=== PATIENT | female | born 1975 | race Caucasian/White ===

== ENCOUNTER 2016-06-22 06:48 | Day surgery (SDC) | payer OTHER ==
[~2016-06-22] VITALS: Ht 175.3 cm; Wt 107.1 kg
[~2016-06-22 06:48] MED LIST: BACTRIM,SEPT1 TABLET PO; CELEBREX50 MG PO; DOXYCYCLINE HY100 MG PO; GUMMI BEAR MUL1 EACH PO; HYDROCODON-ACE1 EAC8 PO; IRON325 MG PO; KEFLEX500 MG PO; LEXAPRO20 MG PO; LORCET 5-325 M1 EACH PO; LYRICA100 MG PO; LYRICA50 MG PO; LYRICA75 MG PO; MELOXICAM7.5 MG PO; MOTRIN800 MG PO; NOHOMEMEDS; RELAFEN500 M1 PO; ULTRAM50 MG PO; VICODIN 5-3001 EACH PO; WELLBUTRIN SR150 MG PO; ZANAFLEX2 M1 PO
== END 2016-06-22 09:00 | disposition home or self-care (01) ==
LOC: PAIN 06:48 → SDC 07:30 → PAIN 07:30 → CATH 08:00 → PAIN 09:00
PROC: 3E0S33Z Introduction of Anti-inflammatory into Epidural Space, Percutaneous Approach (ICD-10-PCS; principal; 2016-06-22)
DX: M54.16 Radiculopathy, lumbar region (principal); F41.9 Anxiety disorder, unspecified; M47.812 Spondylosis without myelopathy or radiculopathy, cervical region; G89.29 Other chronic pain; M48.06 Spinal stenosis, lumbar region; Z79.899 Other long term (current) drug therapy; M51.06 Intervertebral disc disorders with myelopathy, lumbar region; M79.1 Myalgia; M43.16 Spondylolisthesis, lumbar region; M54.41 Lumbago with sciatica, right side; E66.09 Other obesity due to excess calories; Z68.34 Body mass index [BMI] 34.0-34.9, adult; Z87.891 Personal history of nicotine dependence
CPT/HCPCS: J1030; J2250; J3010

== ENCOUNTER 2016-07-26 06:59 | Day surgery (SDC) | payer OTHER ==
[~2016-07-26] VITALS: Ht 175.3 cm; Wt 110.2 kg
[~2016-07-26 06:59] MED LIST changes: +CELEBREX100 MG PO
== END 2016-07-26 08:54 | disposition home or self-care (01) ==
LOC: PAIN 06:59 → SDC 07:30 → PAIN 08:54
PROC: 3E0R33Z Introduction of Anti-inflammatory into Spinal Canal, Percutaneous Approach (ICD-10-PCS; principal; 2016-07-26)
PROC: 3E0R3BZ Introduction of Anesthetic Agent into Spinal Canal, Percutaneous Approach (ICD-10-PCS; 2016-07-26)
DX: M54.16 Radiculopathy, lumbar region (principal); M19.90 Unspecified osteoarthritis, unspecified site; Z79.891 Long term (current) use of opiate analgesic; Z87.891 Personal history of nicotine dependence
CPT/HCPCS: J1100; J2250; J3010

== ENCOUNTER 2016-09-06 12:35 | Day surgery (SDC) | payer OTHER ==
[~2016-09-06] VITALS: Ht 175.3 cm; Wt 110.2 kg
== END 2016-09-06 15:05 | disposition home or self-care (01) ==
LOC: PAIN 12:35 → SDC 13:00 → PAIN 15:05
DX: M47.812 Spondylosis without myelopathy or radiculopathy, cervical region (principal); F41.9 Anxiety disorder, unspecified; M47.26 Other spondylosis with radiculopathy, lumbar region; M51.06 Intervertebral disc disorders with myelopathy, lumbar region; M53.3 Sacrococcygeal disorders, not elsewhere classified; Z87.891 Personal history of nicotine dependence; F32.9 Major depressive disorder, single episode, unspecified; E66.09 Other obesity due to excess calories; Z68.37 Body mass index [BMI] 37.0-37.9, adult
CPT/HCPCS: J1030; J1885; J2250; J3010; S0020

== ENCOUNTER 2016-09-13 08:52 | Day surgery (SDC) | payer OTHER ==
[~2016-09-13] VITALS: Ht 175.3 cm; Wt 110.2 kg
== END 2016-09-13 11:50 | disposition home or self-care (01) ==
LOC: PAIN 08:52 → SDC 09:45 → PAIN 11:50
DX: M47.812 Spondylosis without myelopathy or radiculopathy, cervical region (principal); M54.2 Cervicalgia; G89.29 Other chronic pain; M54.41 Lumbago with sciatica, right side; M51.16 Intervertebral disc disorders with radiculopathy, lumbar region; M51.06 Intervertebral disc disorders with myelopathy, lumbar region; Z68.37 Body mass index [BMI] 37.0-37.9, adult; E66.09 Other obesity due to excess calories; Z87.891 Personal history of nicotine dependence; Z79.891 Long term (current) use of opiate analgesic
CPT/HCPCS: J1030; J1885; J2250; J3010; S0020

== ENCOUNTER 2016-12-24 12:00 | Day surgery (SDC) | payer OTHER ==
[~2016-12-24] VITALS: Ht 175.3 cm; Wt 108.8 kg
== END 2016-12-24 14:31 | disposition home or self-care (01) ==
LOC: PAIN 12:00 → SDC 12:45 → PAIN 12:45
DX: M47.812 Spondylosis without myelopathy or radiculopathy, cervical region (principal); M54.2 Cervicalgia; G89.29 Other chronic pain; M54.5 Low back pain; M47.26 Other spondylosis with radiculopathy, lumbar region; M79.1 Myalgia; M43.16 Spondylolisthesis, lumbar region; F41.8 Other specified anxiety disorders; E66.9 Obesity, unspecified; Z68.35 Body mass index [BMI] 35.0-35.9, adult; Z79.891 Long term (current) use of opiate analgesic; Z87.891 Personal history of nicotine dependence
CPT/HCPCS: J1030; J1885; J2250; J3010; S0020

== ENCOUNTER 2016-12-31 10:52 | Day surgery (SDC) | payer OTHER ==
[~2016-12-31] VITALS: Ht 175.3 cm; Wt 108.9 kg
[~2016-12-31 10:52] MED LIST changes: +PERCOCET 10/1 TABLET PO
== END 2016-12-31 12:37 | disposition home or self-care (01) ==
LOC: PAIN 10:52 → SDC 13:00 → PAIN 13:00
DX: M47.812 Spondylosis without myelopathy or radiculopathy, cervical region (principal); M54.2 Cervicalgia; G89.29 Other chronic pain; E66.9 Obesity, unspecified; Z68.35 Body mass index [BMI] 35.0-35.9, adult; Z87.891 Personal history of nicotine dependence; M47.26 Other spondylosis with radiculopathy, lumbar region; M48.06 Spinal stenosis, lumbar region; F41.8 Other specified anxiety disorders; M47.818 Spondylosis without myelopathy or radiculopathy, sacral and sacrococcygeal region
CPT/HCPCS: J1030; J1885; J2250; J3010; S0020

== ENCOUNTER 2017-05-14 17:10 | Emergency (ER) | payer OTHER ==
[~2017-05-14] VITALS: Ht 175.3 cm; Wt 91.7 kg
[~2017-05-14 17:10] MED LIST changes: +LYRICA150 MG PO
[2017-05-14] MEDS ORDERED: PERCOCET 5/31 TABLET PO (19:32)
[2017-05-14 20:18] VITALS: BP 127/75
== END 2017-05-14 20:23 | disposition home or self-care (01) ==
LOC: EME 17:10
PROC: 2W3RX1Z Immobilization of Left Lower Leg using Splint (ICD-10-PCS; principal; 2017-05-14)
DX: S92.252A Displaced fracture of navicular [scaphoid] of left foot, initial encounter for closed fracture (principal); R93.6 Abnormal findings on diagnostic imaging of limbs; G89.29 Other chronic pain; W10.9XXA Fall (on) (from) unspecified stairs and steps, initial encounter; Z79.891 Long term (current) use of opiate analgesic; Z87.891 Personal history of nicotine dependence; Z90.49 Acquired absence of other specified parts of digestive tract
CPT/HCPCS: 73590; 73610; 73700; 99281; 99284; J2270